=== PATIENT | female | born 1945 | race Caucasian/White ===

== ENCOUNTER → 2016-06-22 | Outpatient (CLI) | payer OTHER, BC | LOC: FIMAGING 12:28 | DX: Z12.31 Encounter for screening mammogram for malignant neoplasm of breast (principal) | CPT/HCPCS: G0202 ==

== ENCOUNTER → 2017-01-25 | Outpatient (CLI) | payer OTHER, BC | LOC: FIMAGING 15:05 | PROVIDERS: ATTEND Internal Medicine Pulmonary Disease | DX: R91.1 Solitary pulmonary nodule (principal); K80.20 Calculus of gallbladder without cholecystitis without obstruction; Z87.891 Personal history of nicotine dependence; Z85.41 Personal history of malignant neoplasm of cervix uteri ==

== ENCOUNTER → 2017-07-22 | Outpatient (CLI) | payer OTHER, BC | PROVIDERS: ATTEND Internal Medicine Gastroenterology | DX: R13.14 Dysphagia, pharyngoesophageal phase (principal); K21.9 Gastro-esophageal reflux disease without esophagitis | CPT/HCPCS: 74230; 92611; G8996; G8997; G8998 ==

== ENCOUNTER 2017-09-01 11:58 | Day surgery (SDC) | payer OTHER, BC ==
--- NOTE | 2017-09-01 07:26 | PDGENHP ---
History and Physical History and Physical: Assessment and Plan: 1. Thickened endometrium We will notify Nelly of her biopsy results. I suspect it will come back atrophic. I then will discuss with Ivonne regarding any further management. 2. Post-menopausal bleeding Subjective: Patient ID: Nelly Jin is a 71 y.o. female who presents to [facility] for postmenopausal bleeding. HPI Nelly Jin presents for a preoperative visit. She is scheduled for a hysteroscopy. The risks, benefits, and alternatives were presented and informed consent was obtained. 40 minutes of this 40 minute appointment was spent counceling, reviewing the procedure in detail, and discussing the preoperative and postoperative instructions. Below is a copy of our prior visit note. Laxmi is a 71-year-old kindly referred by Ivonne Carnes. She went through menopause in her 30s. She is on hormone replacement. However every time she tries to increase her estrogen dose she develops postmenopausal bleeding. A pelvic ultrasound shows a slightly thickened endometrium at 8 mm. However given her uterine retroversion and cervical stenosis it has been difficult to obtain an adequate endometrial sampling. She has been off her hormones for several months since her most recent episode of bleeding. She feels horrible without her hormones and wishes to restart them. Otherwise she has no other symptoms. PastMedicalHistory Past Medical History: Diagnosis Date Adenomatous polyp of colon 04/21/2010 Cancer (HC code) COPD (chronic obstructive pulmonary disease) (HC code) Esophageal reflux 04/21/2010 Most recent endoscopy 02/01/14: esosinophilic esophagitis. Hiatal hernia. Stomach ad duodenum normal Hiatal hernia 02/02/2014 Hypertension Hypothyroidism 04/21/2010 Osteoarthritis 04/21/2010 back Psoriasis 02/02/2014 Tobacco abuse 06/10/2011 Tubular adenoma of colon 04/21/2010 Colonoscopy 04/29/11 PastSurgicalHistory Past Surgical History: Procedure Laterality Date SECTION 1976, 1978 ELBOW FRACTURE SURGERY FOREARM CLOSED REDUCTION ME APPENDECTOMY ME DELIVERY ONLY x 2 ME REMOVAL OF TONSILS,<12 Y/O SKIN BIOPSY 10/15/2016 R neck, shave bx CURRENT MEDICATIONS: Current Outpatient Prescriptions Medication Sig ANORO ELLIPTA 62.5-25 mcg/actuation DsDv calcipotriene (DOVONOX) 0.005 % cream Apply topically daily for Plaque Psoriasis. calcium carbonate-vitamin D3 600 mg-400 unit per tablet Take 1 tablet by mouth daily. clobetasol (TEMOVATE) 0.05 % cream Apply topically 2 times daily. cyclobenzaprine (FLEXERIL) 10 mg tablet Take 1 tablet by mouth nightly as needed for Muscle spasms for Muscle Spasm. Dexlansoprazole (DEXILANT) 60 mg CpDM Take 1 capsule by mouth daily. diindolylmethane, bulk, 100 % Powd Take as instructed. fluticasone (FLONASE) 50 mcg/actuation nasal spray Use 1 or 2 sprays each nostril daily as needed for rhinitis Max 2 sprays daily levothyroxine (SYNTHROID) 112 mcg tablet Take 1 tablet by mouth daily for hypothyroidism. MINIVELLE, estradiol, (MINIVELLE) 0.0375 mg/[address] 1 patch onto the skin twice a week. omega-3 acid ethyl esters, fish oil, (LOVAZA) 1 gram capsule Take 2 g by mouth 2 times daily. progesterone (PROMETRIUM) 200 mg capsule tazarotene (TAZORAC) 0.05 % gel Apply topically nightly at bedtime. triamcinolone (KENALOG) 0.1 % cream Apply topically 2 times daily for psoriasis. UNABLE TO FIND Med Name: Niagen 250 mg UNABLE TO FIND Med Name: Pterostilben 50 mg 3 x weekly XOPENEX HFA 45 mcg/actuation inhaler No current facility-administered medications for this visit. ALLERGIES: Codeine I have reviewed, verified and agree with the past medical, surgical, , family, social and ROS history as documented by the RN today. Objective: Vital Signs: Visit Vitals BP 124/76 Pulse 66 Temp 36.7 C (98.1 F) (Temporal Artery) Resp 16 Ht 1.651 m (5' 5") Wt 82.1 kg (181 lb) SpO2 99% BMI 30.12 kg/m Physical Exam Gen: This is an alert, well developed woman in no distress. Neuro: She moves all extremities. Psych: She is appropriate, oriented, with normal affect. Neck: No thyroid enlargement, adenopathy, or tenderness. Lungs: Clear to ascultation, no wheezes or rales. Heart: Regular rate and rhythm without obvious murmurs. Abdomen: Soft, non-tender, without guarding, rebound, or masses. Extremities: No edema or cyanosis. Pelvic: Normal external genitalia. Non-gaping introitus, vagina without discharge, adequately estrogenized, no significant prolapse. Cervix without lesions or discharge. Uterus normal sized, mobile, non-tender. Adnexa non- tender without enlargement. The cervix was cleaned with Betadine. An endometrial biopsy was performed in standard fashion. 2 Pipelle's were used given the small specimen size. DATA: I have reviewed the pertinent medical records. TIME/COMMUNICATION: I personally spent a total of 40 minutes. Of that 30 minutes was counseling/ coordination of patient's care. See my note above for details. Rex Biswas MD Board Certified Female Pelvic Medicine and Reconstructive Surgery Director of Minimally Invasive Gynecologic Surgery, [facility] Surgeon in Minimally Invasive Gynecologic Surgery [facility] Surgeon in Robotic Surgery
--- NOTE | 2017-09-01 11:52 | PDANEPAE ---
ANE History of Present Illness Hysteroscopy Morcellator possible D and C. ANE Past Medical History - Cardiovascular History Hx Hypertension: No Hx Arrhythmias: No Hx Chest Pain: No Hx Coronary Artery / Peripheral Vascular Disease: No Hx CHF / Valvular Disease: No Hx Palpitations: No Cardiovascular History Comment: white coat syndrome - Pulmonary History Hx COPD: No Hx Asthma/Reactive Airway Disease: Yes Hx Recent Upper Respiratory Infection: No Hx Oxygen in Use at Home: No Hx Sleep Apnea: No Sleep Apnea Screening Result - Last Documented: Negative Pulmonary History Comment: strong odors trigger asthma - Neurologic History Hx Cerebrovascular Accident: No Hx Seizures: No Hx Dementia: No - Endocrine History Hx Diabetes: No Hypothyroid: No Obesity: mild - Renal History Hx Renal Disorders: No - Liver History Hx Hepatic Disorders: No - Neurological & Psychiatric Hx Hx Neurological and Psychiatric Disorders: No - Cancer History Hx Cancer: Yes Cancer History Comment: cervical CA in situ. skin CA - Congenital Disorder History Hx Congenital Disorders: No - GI History Hx Gastrointestinal Disorders: Yes Gastrointestinal History Comment: reflux/gerd - Other Health History Other Health History: psoriasis. left hand ulner nerve issues wears a splint - Chronic Pain History Chronic Pain: No - Surgical History Prior Surgeries: none ANE Review of Systems Review of systems is: negative Review of Systems: - Exercise capacity METS (RN): 4 METS - Systems Cardiac: Reports: no symptoms Gastrointestinal: Reports: no symptoms ANE Patient History - Allergies Allergies/Adverse Reactions: codeine Allergy (Verified 08/04/17 12:39) Vomiting - Home Medications Home medications: home medication list seen and reviewed Home Medications: Bioresponse 08/04/17 [Last Taken 08/25/17] Breo Ellipta 100-25 Mcg INH 08/04/17 [Last Taken 08/31/17] CALCIUM 600 + VIT D TABLET 08/04/17 [Last Taken 08/31/17] Calcipotriene 08/04/17 [Last Taken 08/31/17] Clobetasol 0.05% 08/04/17 [Last Taken 08/31/17] Dexilant 08/04/17 [Last Taken 09/01/17 08:00] Flonase Nasal [place] 08/04/17 [Last Taken 08/25/17] Levothyroxine 08/04/17 [Last Taken 09/01/17 08:00] Minivelle 08/04/17 [Last Taken 08/31/17 21:00] [place]-3 08/04/17 [Last Taken 08/31/17] Progesterone 08/04/17 [Last Taken 08/31/17 21:00] Tazorac 08/04/17 [Last Taken 08/31/17] - Smoking Hx Smoking Status: Former smoker - Family Anes Hx Family Hx Anesthesia Complications: none ANE Labs/Vital Signs - Vital Signs Height: 165.1 cm Weight: 79.379 kg ANE Physical Exam - Airway Neck exam: FROM Mallampati Score: Class 2 - Pulmonary Pulmonary: no respiratory distress, no rales or rhonchi - Cardiovascular Cardiovascular: regular rate and rhythym, no murmur, rub, or gallop - ASA Status ASA Status: II ANE Anesthesia Plan Anesthesia Plan: general endotracheal anesthesia
[2017-09-01] MEDS ORDERED: LR 1,000 ML IV ONE (12:06)
[2017-09-01] MEDS ORDERED: LIDOCAINE 1% 2 ML INJ ID PRN (12:06)
--- NOTE | 2017-09-01 12:13 | PDHPUP ---
History & Physical Update H&P update statement: This history and physical update is based on an assessment of the patient which was completed after admission or registration (within 24 hours), but prior to the surgery/procedure. H&P update: H&P reviewed & patient examined, no change in patient's condition since H&P completed
[2017-09-01] MEDS ORDERED: MIDAZOLAM 2 MG/2 ML VIAL IVP ONE (12:41)
[2017-09-01] MEDS ORDERED: MIDAZOLAM 2 MG/2 ML VIAL ONE (12:43)
[2017-09-01] MEDS ORDERED: fentaNYL 100 MCG/2 ML INJ ONE ×3 (12:53→13:28)
[2017-09-01] MEDS ORDERED: PROPOFOL/EMULSION 500 MG/50 ML BOTTLE IV ONE (12:54)
[2017-09-01] MEDS ORDERED: ROCURONIUM 50 MG/5 ML VIAL ONE ×2 (13:06)
[2017-09-01] MEDS ORDERED: LIDOCAINE 2% 5 ML SDV ONE (13:06)
[2017-09-01] MEDS ORDERED: DEXAMETHASONE 4 MG/ML VIAL ONE (13:06)
[2017-09-01] MEDS ORDERED: SUGAMMADEX SODIUM 200 MG/2 ML VIAL IVP ONE (13:15)
[2017-09-01] MEDS ORDERED: ONDANSETRON 4 MG/2 ML VIAL ONE (13:17)
[2017-09-01] MEDS ORDERED: ALBUTEROL 3 ML DEYVIAL IH PRN (13:30)
[2017-09-01] MEDS ORDERED: NALOXONE HCL 0.4 MG/ML INJ IVP PRN (13:30)
[2017-09-01] MEDS ORDERED: HYDROmorphONE/DILAUDID 1 MG/ML INJ IVP PRN (13:30)
[2017-09-01] MEDS ORDERED: ACETAMINOPHEN 500 MG TAB PO PRN (13:30)
[2017-09-01] MEDS ORDERED: oxyCODONE IR 5 MG TAB PO PRN (13:30)
[2017-09-01] MEDS ORDERED: ONDANSETRON 4 MG/2 ML VIAL IVP PRN (13:30)
[2017-09-01] MEDS: fentaNYL 100 MCG/2 ML INJ IVP PRN ×2 (13:30→13:40)
--- NOTE | 2017-09-01 13:33 | POSTOPPROG ---
Post Op Note Date of Operation: 09/01/17 Surgeon: Rex Biswas [employer] Clerk: None Anesthesiologist: Jessica Fields Anesthesia: GET(General Endotracheal) Pre-op Diagnosis: Post menopausal bleeding, endometrial polyp Post-op Diagnosis: Same Procedure: Hysteroscopy D&C Findings: Polyp Inf/Abcess present in the surg proc area at time of surgery?: No EBL: Minimal Complications: None
--- NOTE | 2017-09-01 13:46 | GOP ---
[f rep st] OPERATIVE REPORT DATE OF OPERATION: 09/01/2017 SURGEON: Rex Biswas MD TOOL SHARPENER: None. ANESTHESIA: General. PREOPERATIVE DIAGNOSIS: 1. Postmenopausal bleeding. 2. Submucous polyp. POSTOPERATIVE DIAGNOSIS: 1. Postmenopausal bleeding. 2. Submucous polyp. PROCEDURE PERFORMED: 1. Hysteroscopy. 2. Polypectomy. 3. Curettage. FINDINGS: SPECIMENS: Endometrial polyp and curettings. ESTIMATED BLOOD LOSS: Scant. DESCRIPTION OF PROCEDURE: The patient was taken to the operating room. She was identified. General anesthesia was administered and found to be adequate. She was placed in the lithotomy position and prepared and draped in normal sterile fashion. A weighted speculum was placed in the vagina. The ce rvix was gently dilated. The diagnostic hysteroscope was advanced into the endometrial cavity. She had a dominant submucous polyp arising from the fundal aspect of the posterior uterine wall. The cer vix was further dilated. Stone forceps were used to grasp and remove the polyp. A sharp curettage w as then performed. Anesthesia was reversed, and the patient taken to the PACU awake, in stable condi tion. COMPLICATIONS: None. DISPOSITION: Patient stable to PACU. Copy requested to: Ana Carnes NP [place], [place] /[id number]/MODL
[2017-09-01 14:30] VITALS: BP 133/72
--- NOTE | 2017-09-01 15:39 | POSTANESTH ---
Post Anesthetic Evaluation Cardiovascular Status: Normal, Stable Respiratory Status: Normal, Stable Level of Consciousness/Mental Status: Can Participate in Eval Pain Control: Adequate, Prn Tx Ordered Nausea/Vomiting Control: Adequate, Prn Tx Ordered Complications Possibly Related to Anesthesia: None Noted
== END 2017-09-01 14:55 | disposition home or self-care (01) ==
LOC: FSGY 11:58
PROVIDERS: ATTEND Obstetrics & Gynecology
PROC: 0UDB8ZX Extraction of Endometrium, Via Natural or Artificial Opening Endoscopic, Diagnostic (ICD-10-PCS; principal; 2017-09-01 13:15)
DX: N95.0 Postmenopausal bleeding (principal); N84.0 Polyp of corpus uteri; J44.9 Chronic obstructive pulmonary disease, unspecified; K21.9 Gastro-esophageal reflux disease without esophagitis; K44.9 Diaphragmatic hernia without obstruction or gangrene; I10 Essential (primary) hypertension; E03.9 Hypothyroidism, unspecified; L40.9 Psoriasis, unspecified; Z87.891 Personal history of nicotine dependence; Z86.001 Personal history of in-situ neoplasm of cervix uteri; Z86.010 Personal history of colon polyps; Z79.890 Hormone replacement therapy
CPT/HCPCS: J1100; J2250; J2405; J2704; J3010

== ENCOUNTER → 2017-12-24 | Outpatient (CLI) | payer OTHER, BC | LOC: FIMAGING 12:09 | PROVIDERS: ATTEND Nurse Practitioner Obstetrics & Gynecology | DX: Z12.31 Encounter for screening mammogram for malignant neoplasm of breast (principal) ==